=== PATIENT | male | born 1945 | race Caucasian/White ===

== ENCOUNTER → 2016-08-12 | Outpatient (CLI) | payer BC ==
[~2016-08-12] MED LIST: ALBINS/ INH; ALPR-412 PO; CETI10TA84 PO; CHOL1000 PO; CITA40TA4 PO; CLOP1TAB15 PO; CRS/10 PO; DILT-113 PO; GLC/500 PO; INSDGI SC; Iron PO; LOSA1TAB38 PO; LOSA50TA6 PO; MECL1TAB42 PO; MELO15TA4 PO; MULT-506 PO; NRN/300 PO; OXGN; PANT40TA PO; PRO AIR INH; SPRIN/30 INH; SYMIN160 INH; TAMS0.4C38 PO; TRAM-10 PO; VITACAP26 PO; VITAMIN B12 IM; ZNTT/150 PO
--- NOTE | 2016-08-12 13:03 | DIAGNOSTIC IMAGING REPORT ---
CT OF THE CHEST WITHOUT CONTRAST CT SUPERDIMENSIONAL PROTOCOL CT DOSE: 619.81 mGy.cm CLINICAL HISTORY: Emphysema. Interstitial lung disease. TECHNIQUE: Axial images of the chest were obtained without IV contrast according to the superdimensional protocol. COMPARISON STUDY: Chest CTs January 11, 2016 and April 05, 2016 FINDINGS: No enlarged axillary, mediastinal or hilar lymph nodes are present. The size of the heart is normal. There is no pericardial effusion. Central airways are patent. There is severe emphysema. Note is made of an irregular 3.1 cm mass-like opacity within the right upper lobe with spiculated margins and multiple cystic spaces. This has slightly increased in size since CT of January 11, 2016 when it measured 2.8 cm. There is also a spiculated irregular nodule within the right lower lobe shown on image 189 of 351 that measures 2.6 x 1.3 cm. This is minimally increased in size since prior exam of January 11, 2016 when it measured 2.5 x 1.1 cm. Note is made of several additional indeterminate nodules, including an 8 mm groundglass and solid left upper lobe nodule shown on image 87 and a 1.1 cm groundglass opacity within the right upper lobe shown on image 60. These are similar to earlier CTs. No pneumothorax or pleural effusion is present. No suspicious osseous lesions are present. A few hypodense lesions arising from the upper pole of the right kidney are suboptimally assessed with unenhanced exam but likely reflect cysts. IMPRESSION: 1. 3.1 cm spiculated mass containing numerous cystic spaces within the right upper lobe which has minimally increased in size since CT of January 11, 2016. This is highly suggestive of a neoplasm such as adenocarcinoma. In addition, a 2.6 x 1.3 cm right lower lobe spiculated nodule is suspicious for malignancy. Numerous additional smaller groundglass and solid nodules are noted. Overall, the findings raise the possibility of multifocal adenocarcinoma. 2. Severe emphysema. 3. No thoracic lymphadenopathy. Electronically signed by: Bhavik Justice M.D. 08/12/2016 1:01 PM Dictated Date/Time: 08/12/2016 12:33 PM
== END | disposition home or self-care (01) ==
LOC: C.CTS 11:57
PROVIDERS: ATTEND Surgery
DX: J43.9 Emphysema, unspecified (principal); J84.9 Interstitial pulmonary disease, unspecified; R91.1 Solitary pulmonary nodule

== ENCOUNTER → 2016-11-08 | Day surgery (SDC) | payer BC ==
[2016-10-28 13:21] VITALS: Ht 180.3 cm; Wt 87.3 kg
[~2016-11-08] VITALS: Ht 180.3 cm; Wt 87.3 kg
[~2016-11-08] MED LIST changes: +CLINDAMYCIN PHOS 150 MG/ML 2 ML VIAL ONE; +DEXAMETHASONE SOD INJ 4 MG/ML VIAL ONE; +EpHEDrine SULFATE INJ 50 MG/ML AMP ONE; +FENTANYL CITRATE INJ 50 MCG/1 ML 2 ML VIAL ONE; +GLYCOPYRROLATE INJ 0.2 MG/ML VIAL ONE; +LACTATED RINGER'S 1000ML 1,000 ML IV SCH; +LIDOCAINE HCL 2% 2 ML VIAL (20MG/ML) ONE; -LOSA1TAB38 PO; +MIDAZOLAM HCL 1 MG/ML 2ML VIAL ONE; +NEOSTIGMINE METHYLSULFATE 5 MG/5 ML SYR ONE; +ONDANSETRON INJ 2 MG/ML 2 ML VIAL ONE; +PHENYLEPHRINE HCL INJ 10 MG/ML VIAL ONE; +PROPOFOL IV EMULSION 10 MG/ML 20 ML VIAL IV ONE; +ROCURONIUM BROMIDE 10 MG/ML 5 ML VIAL ONE; -SPRIN/30 INH; +SUCCINYLCHOLINE CHLORIDE 20 MG/ML 10 ML VIAL IV ONE
--- NOTE | 2016-11-08 07:33 | History & Physical Bridge Note ---
H&P Re-Evaluation Bridge Note: I have examined the patient, reviewed the History & Physical and in the interval since the performance of the History & Physical I have noted the following changes of clinical significance: No changes noted
--- NOTE | 2016-11-08 09:17 | DIAGNOSTIC IMAGING REPORT ---
CT SCAN OF THE CHEST WITHOUT IV CONTRAST CLINICAL HISTORY: Right upper lobe lung lesion. COMPARISON STUDY: Chest CT scans dated 08/12/2016 and 04/05/2016. TECHNIQUE: CT scan of the thorax was performed from the thoracic inlet to the upper abdomen. Images are reviewed in the axial, sagittal, and coronal planes. IV contrast was not administered for this examination. CT DOSE: 349.35 mGy.cm FINDINGS: Thyroid: Imaged portions of the thyroid gland are normal in size and attenuation. Thoracic aorta: There is atherosclerotic calcification of the thoracic aorta, which is normal in caliber and demonstrates bovine variant arch anatomy. Heart: The heart is normal in size and without pericardial effusion. The coronary arteries are densely calcified. The pulmonary trunk is normal in caliber. Lungs and pleural spaces: There is advanced emphysema and biapical scarring. The trachea and central airways are clear. Again seen is a spiculated mass in the right upper lobe on image #144. This measures 3.4 x 2.9 cm (producing measured up to 3.1 cm). There appears modestly increased in size from 08/12/2016, and there is extension of this lesion to the pleural surface seen on image #136. A similar-appearing spiculated mass in the right lower lobe has also modestly increased in size. This measures 3.6 x 1.7 cm as seen on image #203. Both lesions contain small internal cystic foci. An irregular nodule at the left apex on image #46 is similar to previous measuring up to 6 mm. Additional left upper lobe nodule on image #78 measures 9 mm. This is modestly increased in size from previous when it measured up to 8mm. A tiny calcified granulomas noted right lung base. Ill-defined densities at the right apex are similar to previous and may be related to scar. There is no airspace consolidation or pleural effusion. Mediastinum: There is no mediastinal lymphadenopathy. Sneha: Not well assessed without IV contrast. Axillae: There is no axillary lymphadenopathy. Upper abdomen: There is a tiny hiatal hernia. Partially visualized upper abdominal viscera is otherwise within normal limits. Skeletal structures: The skeletal structures are osteopenic. Degenerative change is noted in the thoracic spine and shoulders. No lytic or blastic bony lesions are seen. IMPRESSION: 1. There are spiculated mass lesions in the right upper and right lower lobes as detailed above. These have modestly increased in size from 08/12/2016 and should be considered lung cancer until proven otherwise. 2. There are 2 additional subcentimeter left upper lobe irregular pulmonary nodules. 1 of these has modestly increased in size from previous and these are also concerning. 3. Advanced emphysema. 4. There is no airspace consolidation or pleural effusion. 5. No mediastinal lymphadenopathy is seen. Electronically signed by: Dino Ortiz M.D. 11/08/2016 9:16 AM Dictated Date/Time: 11/08/2016 9:08 AM
--- NOTE | 2016-11-08 09:32 | Discharge Instructions ---
Discharge Instructions Date of Service November 08, 2016. Visit Reason for Visit: Lung Masses, Diabetes Discharge Discharge Diagnosis / Problem: Lung Masses Discharge Goals Goal(s): Learn about illness Activity Recommendations Activity Limitations: resume your previous activity (in 24 hours) Anesthesia . Post Anesthesia Instructions: If you have had General Anesthesia or IV Sedation: * Do not drive today. * Resume driving when surgeon permits. * Do not make important decisions or sign legal documents today. * Call surgeon for: 1. Temperature elevations greater than 101 degrees F. 2. Uncontrollable pain. 3. Excessive bleeding. 4. Persistent nausea and vomiting. 5. Medication intolerance (nausea, vomiting or rash). * For nausea and vomiting use only clear liquids such as: tea, soda, bouillon until nausea subsides, then gradually increase diet as tolerated. * If you have any concerns or questions, call your surgeon's office. If physician is unavailable and it is an emergency, call 911 or go to the nearest emergency room. . Instructions / Follow-Up Instructions / Follow-Up 1. You may cough up some blood. Call physician if excessive amount noted. 2. Keep your scheduled appointment with Dr. Landis on November 19, 2016 @ 11:15. Diet Recommendations Recommended Home Diet: resume previous diet Pending Studies Studies pending at discharge: no Medical Emergencies . Who to Call and When: Medical Emergencies: If at any time you feel your situation is an emergency, please call 911 immediately. . Non-Emergent Contact Non-Emergency issues call your: Surgeon Call Non-Emergent contact if: your pain is not controlled . . "Provider Documentation" section prepared by Michael Sams. .
--- NOTE | 2016-11-08 11:53 | DIAGNOSTIC IMAGING REPORT ---
CHEST ONE VIEW PORTABLE CLINICAL HISTORY: s/p FOB dyspnea COMPARISON STUDY: CT 11/08/2016 FINDINGS: No evidence pneumothorax. Parenchymal density right midlung. As described. Diaphragms are smooth. IMPRESSION: No evidence of pneumothorax. Electronically signed by: Rebel Pabon M.D. 11/08/2016 11:52 AM Dictated Date/Time: 11/08/2016 11:46 AM
[2016-11-08 12:15] VITALS: BP 167/86; PULSE 70; TEMP 37; O2SAT 98
--- NOTE | 2016-11-08 12:33 | DIAGNOSTIC IMAGING REPORT ---
FLUOROSCOPIC IMAGE OF THE CHEST CLINICAL HISTORY: NAVIGATIONAL BRONCHOSCOPY COMPARISON STUDY: Chest CT November 08, 2016. Fluoroscopy time: 188 seconds. FINDINGS: 3 fluoroscopic images of the right chest during bronchoscopy were obtained. IMPRESSION: Fluoroscopic images during right-sided bronchoscopy. Electronically signed by: Bhavik Justice M.D. 11/08/2016 12:31 PM Dictated Date/Time: 11/08/2016 12:21 PM
[2016-11-08 12:45] VITALS: BP 191/82; PULSE 70; O2SAT 98
[2016-11-08 13:15] VITALS: BP 189/88; PULSE 69; TEMP 37; O2SAT 95
--- NOTE | 2016-11-08 15:35 | Anesthesiology Progress Note ---
Anesthesia Post Op Note Date & Time November 08, 2016 at 15:36 Vital Signs Pain Intensity: 0 Vital Signs Past 12 Hours Date Time Temp Pulse Resp B/P Pulse Ox O2 Delivery O2 Flow Rate FiO2 11/08/16 13:15 37 69 18 189/88 95 Room Air 11/08/16 12:45 70 18 191/82 98 Nasal Cannula 3 11/08/16 12:15 37 70 16 167/86 98 Nasal Cannula 3 11/08/16 12:10 69 12 152/73 96 Nasal Cannula 3 11/08/16 12:00 36.3 72 12 103/77 96 Nasal Cannula 3 11/08/16 11:50 75 12 167/80 97 Nasal Cannula 3 11/08/16 11:40 78 12 161/83 100 Mask 10 11/08/16 11:32 36.0 83 12 178/94 100 Mask 10 Notes Mental Status: alert / awake / arousable, participated in evaluation Pt Amnestic to Procedure: Yes Nausea / Vomiting: adequately controlled Pain: adequately controlled Airway Patency, RR, SpO2: stable & adequate BP & HR: stable & adequate Hydration State: stable & adequate Anesthetic Complications: no major complications apparent
--- NOTE | 2016-11-15 21:11 | OPERATIVE REPORT ---
DATE OF OPERATION: 11/08/2016 PREOPERATIVE DIAGNOSES: 1. Slowly enlarging mass in the right upper lobe and right lower lobe. 2. Severe emphysema with chronic obstructive pulmonary disease. 3. A long history of cigarette smoking. 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 SURGEON: Dr. Landis. PROCEDURE: 1. Endobronchial ultrasound. 2. Navigational bronchoscopy with biopsy right upper lobe and right lower lobe masses. PROCEDURE IN DETAIL: The patient brought to the operating room and laid in supine position. General anesthesia induced and endotracheal intubation was performed with a large endotracheal tube. The endobronchial ultrasound scope was then placed. I spent a lot of time looking at lymph nodes and really I did not see anything that was large enough to biopsy. They were all under 5 mm. I looked aggressively and simply did not see anything starting at the left level 11 and 10, level 2 and 4 on the left, as well as level 7, level 10 and 11 on the right, level 2 and level 4 on the right. They were simply too small, I did not biopsy them. I then placed the navigational probe, and after mapping out the bronchial system, I then placed the probe down into the right upper lobe and I was quite happy with our navigation as we went right into the mass. This was confirmed on radial ultrasound. I then used brushes, needles and forceps and then washings. Rapid onsite evaluation showed that we had a nonsmall cell lung carcinoma. I did take extra biopsies for further tissue analysis. We got into very little bleeding after I irrigated this out and collected the cell washings and then went down to the right lower lobe. This was a smaller mass. Again, I went right into the middle of it and did brushes, needle aspirations, and then finally forceps biopsies with touch preps. Again, we did washings. There was no significant bleeding. Again, the rapid onsite evaluation felt that this right lower lobe mass was also nonsmall cell lung carcinoma and similar in appearance. After irrigating out both airways and closely inspecting them, I slowly withdrew the bronchoscope. He had had no endobronchial lesions, whatsoever, and was easily extubated in the room. I attest to the content of the Intraoperative Record and any orders documented therein. Any exceptio ns are noted below.
== END | disposition home or self-care (01) ==
LOC: C.ACU 06:59
PROVIDERS: ATTEND Surgery
DX: C34.11 Malignant neoplasm of upper lobe, right bronchus or lung (principal); E11.9 Type 2 diabetes mellitus without complications; N40.0 Benign prostatic hyperplasia without lower urinary tract symptoms; I25.10 Atherosclerotic heart disease of native coronary artery without angina pectoris; J43.9 Emphysema, unspecified; K21.9 Gastro-esophageal reflux disease without esophagitis; E78.5 Hyperlipidemia, unspecified; Z87.891 Personal history of nicotine dependence; Z99.81 Dependence on supplemental oxygen; Z83.3 Family history of diabetes mellitus